=== PATIENT | male | born 1995 | race Caucasian/White ===

== ENCOUNTER 2019-11-10 22:25 | Emergency (ER) | payer OTHER ==
[2019-11-10 22:29] VITALS: RESP 18
--- NOTE | 2019-11-10 23:15 | XR ---
EXAMINATION TYPE: XR chest 1V portable DATE OF EXAM: 11/10/2019 COMPARISON: NONE HISTORY: Cough TECHNIQUE: Single frontal view of the chest is obtained. FINDINGS: There is no focal air space opacity, pleural effusion, or pneumothorax seen. The cardiac silhouette size is within normal limits. The osseous structures are intact. IMPRESSION: 1. No acute process.
--- NOTE | 2019-11-10 23:41 | ED ---
URI HPI - General Chief Complaint: Upper Respiratory Infection Stated Complaint: SOB, Cough Time Seen by Provider: 11/10/19 22:31 Source: patient Mode of arrival: ambulatory Limitations: no limitations - History of Present Illness Initial Comments: 24-year-old male patient presents to the emergency department today for evaluation of cough, chest discomfort, and shortness of breath. Patient states that symptoms started 2-3 days ago. States that he is a smoker. Denies any sputum production with a cough. Denies any fever or chills. Denies any nasal congestion or drainage. Denies sore throat. He states he has no medical conditions and does not currently take any medications. Patient denies any recent rash, abdominal pain, nausea, vomiting, diarrhea, constipation, back pain, numbness, tingling, dizziness, weakness, hematuria, dysuria, urinary urgency, urinary frequency, headache, visual changes, or any other complaints. - Related Data Allergies Allergy/AdvReac Type Severity Reaction Status Date / Time No Known Allergies Allergy Verified 11/10/19 22:29 Review of Systems ROS Statement: Those systems with pertinent positive or pertinent negative responses have been documented in the HPI. ROS Other: All systems not noted in ROS Statement are negative. Past Medical History Past Medical History: No Reported History Past Surgical History: No Surgical Hx Reported Past Psychological History: No Psychological Hx Reported Smoking Status: Current every day smoker Past Alcohol Use History: Occasional Past Drug Use History: Marijuana General Exam Limitations: no limitations General appearance: alert, in no apparent distress, other (Physical well- developed, well-nourished adult male patient in no acute distress. Vital signs upon presentation are temperature 98.8F, pulse 79, respirations 18, blood pressure 139/83, pulse ox 98% on room air.) Eye exam: Present: normal appearance, PERRL, EOMI. Absent: scleral icterus, conjunctival injection, periorbital swelling ENT exam: Present: normal exam, normal oropharynx, mucous membranes moist Respiratory exam: Present: normal lung sounds bilaterally. Absent: respiratory distress, wheezes, rales, rhonchi, stridor, accessory muscle use Cardiovascular Exam: Present: regular rate, normal rhythm, normal heart sounds. Absent: systolic murmur, diastolic murmur, rubs, gallop, clicks GI/Abdominal exam: Present: soft, normal bowel sounds. Absent: distended, tenderness, guarding, rebound, rigid Neurological exam: Present: alert, oriented X3, CN II-XII intact Psychiatric exam: Present: normal affect, normal mood Skin exam: Present: warm, dry, intact, normal color. Absent: rash Course Vital Signs 11/10/19 11/10/19 22:27 23:58 Temperature 98.8 F 98.6 F Pulse Rate 79 61 Respiratory 18 18 Rate Blood Pressure 139/83 118/80 O2 Sat by Pulse 98 99 Oximetry Medical Decision Making - Medical Decision Making 24-year-old male patient presents to the emergency department today for evaluation of cough and shortness of breath. Physical examination reveals clear equal lung sounds. Vital signs reviewed and showed no major abnormalities. Chest x-ray shows no acute cardiopulmonary process. EKG was obtained and showed normal sinus rhythm. I did discuss findings and results with patient. Did discuss with patient that COVID-19 testing is being reserved for those severely ill or being admitted to the hospital. We did discuss possibility of COVID-19 infection and signs or symptoms of worsening illness. We did discuss the importance of quarantine. Patient is instructed to follow up with the primary care physician for recheck in 1-2 days. Return parameters are discussed in detail. Patient verbalizes understanding and agrees with this plan. - EKG Data -: EKG Interpreted by Me EKG Comments: EKG obtained at 2315 shows normal sinus rhythm with a ventricular rate of 72, W[place] interval 152, QR gnosticism 96, QT 378, QTC 413. No evidence of ST elevation or depression. - Radiology Data Radiology results: report reviewed, image reviewed One view x-ray of the chest is obtained. Report was reviewed in its entirety. Impression by Dr. Tobar shows no acute process Disposition Clinical Impression: Suspected COVID-19 virus infection, Chest pain Disposition: HOME SELF-CARE Condition: Good Instructions (If sedation given, give patient instructions): Chest Pain (ED), Upper Respiratory Infection (ED) Additional Instructions: Follow-up with your primary care physician for recheck in 1-2 days. Quarantine for the next 14 days. Return to the emergency department immediately for any new, worsening, or concerning symptoms. Is patient prescribed a controlled substance at d/c from ED?: No Referrals: None,Stated [Primary Care Provider] - 1-2 days Time of Disposition: 23:41
[2019-11-10 23:59] VITALS: BP 118/80; PULSE 61; TEMP 98.6
== END 2019-11-10 23:59 | disposition home or self-care (01) ==
LOC: EC 22:25
DX: Z03.818 Encounter for observation for suspected exposure to other biological agents ruled out (principal); R07.89 Other chest pain; R06.02 Shortness of breath; R05 Cough; F17.200 Nicotine dependence, unspecified, uncomplicated
CPT/HCPCS: 71045; 93005; 99285

== ENCOUNTER 2019-11-30 18:08 | Emergency (ER) | payer OTHER ==
[2019-11-30 18:15] VITALS: BP 116/74; PULSE 69; RESP 18; TEMP 99
[2019-11-30] MEDS ORDERED: FLUORESCEIN STRIPS 1 MG STRIP LEFT EYE ONE (18:24)
[2019-11-30] MEDS ORDERED: TOBRAMYCIN 0.3% OPHTH DROPS 5 ML BTL LEFT EYE STA (18:42)
--- NOTE | 2019-11-30 18:45 | ED ---
Eye Problem HPI - General Chief complaint: Eye Problems Stated complaint: chemicals in eye-[facility] Time Seen by Provider: 11/30/19 18:20 Source: patient, RN notes reviewed Mode of arrival: ambulatory Limitations: no limitations - History of Present Illness Initial comments: This a 24-year-old male presents emergency Department chief complaint left eye irritation. Patient states he was at work states that he sprayed some hash slinger on the foot up on states that it dripped into his left eye. Patient states it feels irritated. He did flush it out eyewash station for 20 minutes. Patient states that he was sent here for evaluation. Denies any significant blurred vision states it just feels irritated, very dry. Patient offers no other complaints. - Related Data Allergies Allergy/AdvReac Type Severity Reaction Status Date / Time No Known Allergies Allergy Verified 11/30/19 18:15 Review of Systems ROS Statement: Those systems with pertinent positive or pertinent negative responses have been documented in the HPI. ROS Other: All systems not noted in ROS Statement are negative. Past Medical History Past Medical History: No Reported History Past Surgical History: No Surgical Hx Reported Past Psychological History: No Psychological Hx Reported Smoking Status: Current every day smoker Past Alcohol Use History: Occasional Past Drug Use History: Marijuana General Exam Limitations: no limitations General appearance: alert, in no apparent distress Head exam: Present: atraumatic, normocephalic, normal inspection Eye exam: Present: PERRL, EOMI, conjunctival injection (Left), other (PH of 7, fluorescein and Wood's lamp there is no uptake noted). Absent: normal appearance, scleral icterus, periorbital swelling ENT exam: Present: normal exam, normal oropharynx, mucous membranes moist Neck exam: Present: normal inspection, full ROM. Absent: tenderness, meningismus, lymphadenopathy Respiratory exam: Present: normal lung sounds bilaterally. Absent: respiratory distress, wheezes, rales, rhonchi, stridor Cardiovascular Exam: Present: regular rate, normal rhythm, normal heart sounds. Absent: systolic murmur, diastolic murmur, rubs, gallop, clicks Course Vital Signs 11/30/19 18:13 Temperature 99.0 F Pulse Rate 69 Respiratory 18 Rate Blood Pressure 116/74 O2 Sat by Pulse 97 Oximetry Medical Decision Making - Medical Decision Making Patient is a mild chemical burn of the left eye. Visual acuity is not significantly altered. Patient will be given Tobrex eyedrops. Patient advised to follow-up with personal care aid in the morning return for any worsening or change symptoms. Disposition Clinical Impression: Chemical injury of eye Disposition: HOME SELF-CARE Condition: Stable Instructions (If sedation given, give patient instructions): Chemical Eye Meyer (ED) Additional Instructions: Tobrex eyedrops 1 drop every 4 hours to left eye for 7 days. Please return to the Emergency Department if symptoms worsen or any other concerns. Is patient prescribed a controlled substance at d/c from ED?: No Referrals: None,Stated [Primary Care Provider] - 1-2 days Jonathan Plasencia MD [STAFF PHYSICIAN] - 1-2 days Time of Disposition: 18:44
== END 2019-11-30 19:05 | disposition home or self-care (01) ==
LOC: EC 18:08
DX: T26.92XA Corrosion of left eye and adnexa, part unspecified, initial encounter (principal); F17.200 Nicotine dependence, unspecified, uncomplicated; T49.6X1A Poisoning by otorhinolaryngological drugs and preparations, accidental (unintentional), initial encounter; Y93.89 Activity, other specified; Y92.69 Other specified industrial and construction area as the place of occurrence of the external cause; Y99.0 Civilian activity done for income or pay
CPT/HCPCS: 99283

== ENCOUNTER 2020-05-14 13:28 | Emergency (ER) | payer OTHER ==
[2020-05-14 13:32] VITALS: BP 112/79; PULSE 92; RESP 18; TEMP 98.1
--- NOTE | 2020-05-14 15:13 | XR ---
EXAMINATION TYPE: XR chest 2V DATE OF EXAM: 05/14/2020 COMPARISON: 11/10/2019 HISTORY: 24-year-old male with cough and fever TECHNIQUE: PA and lateral views FINDINGS: The cardiomediastinal silhouette, aorta, and pulmonary vasculature are within normal limits. Lungs an d pleural spaces are clear. IMPRESSION: No acute cardiopulmonary process.
--- NOTE | 2020-05-14 15:21 | ED ---
Fever HPI - General Chief Complaint: Fever Stated Complaint: Fever Time Seen by Provider: 05/14/20 13:49 Source: patient, RN notes reviewed Mode of arrival: ambulatory Limitations: no limitations - History of Present Illness Initial Comments: 24-year-old male presents emergency Department chief complaint of fever cough congestion. Patient is still low-grade fever at home for checked his temperature. He states his roommate has been sick for about a week but is improving. Patient states he has increased nasal congestion cough is productive. Patient is a daily smoker. Patient denies any [id number] medication use. Denies any chest pain, abdominal pain, nausea vomiting diarrhea constipation. - Related Data Previous Rx's Medication Instructions Recorded Azithromycin [Zithromax Z-pack (6 0 mg PO DIRECTED #1 pack 05/14/20 tabs)] Allergies Allergy/AdvReac Type Severity Reaction Status Date / Time No Known Allergies Allergy Verified 05/14/20 13:32 Review of Systems ROS Statement: Those systems with pertinent positive or pertinent negative responses have been documented in the HPI. ROS Other: All systems not noted in ROS Statement are negative. Past Medical History Past Medical History: No Reported History History of Any Multi-Drug Resistant Organisms: None Reported Past Surgical History: No Surgical Hx Reported Past Psychological History: No Psychological Hx Reported Smoking Status: Current every day smoker Past Alcohol Use History: Occasional Past Drug Use History: Marijuana General Exam Limitations: no limitations General appearance: alert, in no apparent distress Head exam: Present: atraumatic, normocephalic, normal inspection Eye exam: Present: normal appearance, PERRL, EOMI. Absent: scleral icterus, conjunctival injection, periorbital swelling ENT exam: Present: mucous membranes moist, TM's normal bilaterally, normal external ear exam. Absent: normal oropharynx (Postnasal drainage) Neck exam: Present: normal inspection, full ROM. Absent: tenderness, meningismus, lymphadenopathy Respiratory exam: Present: normal lung sounds bilaterally. Absent: respiratory distress, wheezes, rales, rhonchi, stridor Cardiovascular Exam: Present: regular rate, normal rhythm, normal heart sounds. Absent: systolic murmur, diastolic murmur, rubs, gallop, clicks GI/Abdominal exam: Present: soft, normal bowel sounds. Absent: distended, tenderness, guarding, rebound, rigid Neurological exam: Present: alert, oriented X3 Course Vital Signs 05/14/20 13:29 Temperature 98.1 F Pulse Rate 92 Respiratory 18 Rate Blood Pressure 112/79 O2 Sat by Pulse 99 Oximetry Medical Decision Making - Medical Decision Making X-ray was reviewed there is no significant abnormality. Patient is upper respiratory infection. Patient did have coronavirus testing as he is had a cough and suspected fever.I counseled the patient for smoking cessation for greater than 3 minutes. Disposition Clinical Impression: URI (upper respiratory infection) Disposition: HOME SELF-CARE Condition: Stable Instructions (If sedation given, give patient instructions): Upper Respiratory Infection (ED) Additional Instructions: Please return to the Emergency Department if symptoms worsen or any other concerns. Prescriptions: Azithromycin [Zithromax Z-pack (6 tabs)] 0 mg PO DIRECTED #1 pack Is patient prescribed a controlled substance at d/c from ED?: No Referrals: None,Stated [Primary Care Provider] - 1-2 days Time of Disposition: 15:21
== END 2020-05-14 15:30 | disposition home or self-care (01) ==
LOC: EC 13:28
DX: J06.9 Acute upper respiratory infection, unspecified (principal); F17.200 Nicotine dependence, unspecified, uncomplicated; Z20.828 Contact with and (suspected) exposure to other viral communicable diseases
CPT/HCPCS: 71046; 99283; 99406; U0003